=== PATIENT | male | born 1960 | race Caucasian/White ===

== ENCOUNTER → 2021-09-27 | Outpatient (CLI) | payer OTHER ==
[~2021-09-27] MED LIST: ALBUTEROL1.25 MG/3 INH; ASPIRIN EC81 MG PO; ATORVASTATIN CA20 MG PO; BACLOFEN20 MG PO; BRILINTA 90 MG90 MG PO; COZAAR 25MG TAB25 MG PO; COZAAR100 MG PO; FLONASE 0.05% N16 GM; HYTRIN CAP 1 MG1 MG PO; KENALOG CREAM 080 GM TOP; KLONOPIN1 MG PO; LIPITOR40 MG PO; LOPRESSOR 25 MG25 MG PO; MAGOX 400400 MG PO; NEURONTIN600 MG PO; NITROGLYCERIN0.4 MG SL; OMEPRAZOLE20 MG PO; PLAVIX75 MG PO; REQUIP5 MG PO; TOPROL XL100 MG PO; TRAZODONE HCL100 MG PO; ULTRAM50 MG PO
== END ==
LOC: HEART 5 07:58
DX: I25.10 Atherosclerotic heart disease of native coronary artery without angina pectoris (principal); R00.1 Bradycardia, unspecified; R94.39 Abnormal result of other cardiovascular function study
CPT/HCPCS: 78452; 93306; A9502; J2785